=== PATIENT | male | born 1970 | race Two or more races ===

== ENCOUNTER 2025-04-04 04:17 | Emergency (ER) | payer MEDICARE, MEDICAID, SELFPAY ==
[2025-04-04 04:18] VITALS: BMI 47.8
[2025-04-04 04:21] VITALS: BP 127/77; PULSE 125; RESP 18; TEMP 36.4; O2SAT 94
--- NOTE | 2025-04-04 04:21 | EKG_ITS ---
[facility] Test Date: 2025-04-04 Pat Name: DOMITILA DAN Department: Room: - Gender: Male [employer] Operator: : [id number] Requested By: Saran Cunningham Order Number: [id number] Reading MD: Saran Cunningham Measurements Intervals Ramer Rate: 126 P: 71 [place]: 222 QRS: 197 QRSD: 166 T: -2 QT: 406 QTc: 588 Interpretive Statements SINUS TACHYCARDIA WITH FIRST DEGREE AV BLOCK INDETERMINATE AXIS RIGHT BUNDLE BRANCH BLOCK [120+ ms QRS DURATION, UPRIGHT V1, 40+ ms S IN I/aVL/V4/V5/V6] ST DEPRESSION, CONSIDER SUBENDOCARDIAL INJURY [0.1+ mV ST DEPRESSION] Compared to ECG 12/10/2017 16:02:51 Indeterminate axis now present ST (T wave) deviation now present Sinus rhythm no longer present Right-axis deviation no longer present /store/S0/[id number].pdf
--- NOTE | 2025-04-04 04:34 | XR_ITS ---
Examination: PA chest single view TECHNIQUE: Upright PA chest single view Date and time: April 04, 2025 0457 hours INDICATIONS: Chest pain and shortness of breath beginning today. FINDINGS: Mild elevation left hemidiaphragm Minor subsegmental atelectasis left base Minor prominence left ventricle. Mild vascular congestion. No lobar pneumonia IMPRESSION: Subsegmental atelectasis left base
--- NOTE | 2025-04-04 04:35 | EDRME_ITS ---
Rapid Medical Screening Exam [facility] Arrival date/time: 04/04/25 04:17 54F with history of afib (amio and metop), HTN, DM, muscular dystrophy, psych, and unknown type of cardiomyopathy presents to ED with 2 days of elevated HR, dizziness, and some chest tightness. Patient denies URI symptoms. Chief Complaint: Dizziness Vital signs: Vital Signs Temperature 97.5 F 04/04/25 04:21 Pulse Rate 125 H 04/04/25 04:21 Respiratory Rate 18 04/04/25 04:21 Blood Pressure 127/77 04/04/25 04:21 Pulse Oximetry (%) 94 L 04/04/25 04:21 Oxygen Delivery Method Room Air 04/04/25 04:21
[2025-04-04 05:09] VITALS: BP 121/81; PULSE 127; RESP 25; O2SAT 99
[2025-04-04 05:23] LABS: Basophils # (Auto) 0.0 Thou/mm3 (0.0-0.2); Basophils % (Auto) 0 % (0-2.5); Eosinophils # (Auto) 0.3 Thou/mm3 (0.0-0.5); Eosinophils % (Auto) 3 % (0-10); Hematocrit 42.8 % (41.0-53.0); Hemoglobin 14.1 g/dL (13.5-16.0); Immature Granulocytes Auto 0.03 Thou/mm3 (0.00-0.00); Lymphocytes # (Auto) 2.4 Thou/mm3 (1.0-4.8); Lymphocytes % (Auto) 20 % (10-50); Mean Corpuscular HGB Conc 32.9 g/dl (31.0-37.0); Mean Corpuscular Hemoglobin 29.3 pg (25.0-35.0); Mean Corpuscular Volume 89 fL (80-100); Monocytes # (Auto) 0.8 Thou/mm3 (0.0-0.8); Monocytes % (Auto) 7 % (0-12); Neutrophils # (Auto) 8.5 Thou/mm3 (1.8-7.7); Neutrophils % (Auto) 70 % (37-80); Nucleated Red Blood Cell # 0.00 Thou/mm3 (0.00-0.00); Nucleated Red Blood Cell % 0 /100 WBC (0); Platelet Count 289 Thou/mm3 (140-440); RDW Standard Deviation 43.2 fL (35.1-43.9); Red Blood Count 4.81 Miln/mm3 (4.50-5.90); White Blood Count 12.1 Thou/mm3 (3.8-10.6)
[2025-04-04 05:38] LABS: INR 1.2 (0.9-1.3); Partial Thromboplastin Time 28.3 Seconds (22.0-36.0); Prothrombin Time 12.7 Seconds (9.0-12.2)
[2025-04-04 05:46] LABS: B-Type Natriuretic Peptide 340 pg/mL (0-100)
[2025-04-04 05:49] LABS: Alanine Aminotransferase 15 U/L (10-49); Albumin, Serum 4.1 gm/dL (3.5-5.0); Albumin/Globulin Ratio 1.4 (1.2-2.2); Alkaline Phosphatase 159 U/L (46-116); Anion Gap 10 (7-16); Aspartate Amino Transferase 20 U/L (0-34); BUN/Creatinine Ratio 11 Ratio (12-20); Bilirubin,Total 0.7 mg/dL (0.3-1.2); Blood Urea Nitrogen 16 mg/dL (9-23); Calcium 8.7 mg/dL (8.3-10.6); Calcium (Corrected) 8.7 mg/dL (8.5-10.1); Carbon Dioxide 30.9 mMol/L (20.0-31.0); Chloride 101 mMol/L (98-107); Creatinine (Component) 1.4 mg/dL (0.6-1.3); Estimated Creatinine Clearance 89.5 mL/min (>60); Globulin 3.0 gm/dL (2.3-3.5); Glucose 155 mg/dL (74-106); Magnesium 1.3 mg/dL (1.6-2.6); Osmolality,Calculated 287 (275-295); Potassium 3.4 mMol/L (3.4-5.1); Sodium 142 mMol/L (136-145); Total Protein 7.1 gm/dL (5.7-8.2); Troponin I 0.034 ng/mL (0.0-0.045); eGFR 59 See Note
[2025-04-04 06:32] VITALS: BP 118/80; PULSE 125
[2025-04-04] MEDS: METOPROLOL TARTRATE INJ 1 MG/ML AMP 5 ML 5 MG IVP (06:32)
[2025-04-04] MEDS: SODIUM CHLORIDE 0.9% 500 ML 500 ML 999 ML IV (06:34)
--- NOTE | 2025-04-04 06:47 | EDNOTE_ITS ---
ED Arrhythmia Palp. RME/HPI General Chief Complaint: Dizziness Stated Complaint: HIGH HEART RATE Time Seen by Provider: 04/04/25 07:51 Arrival date/time: 04/04/25 04:17 Limitations: no limitations RME / HPI RME / HPI narrative: 04/04/25 04:17 54F with history of afib (amio and metop), HTN, DM, muscular dystrophy, psych, and unknown type of cardiomyopathy presents to ED with 2 days of elevated HR, dizziness, and some chest tightness. Patient denies URI symptoms. DR. TURNER MAIN ED EVALUATION: 49-year-old male with past medical history of cardiomyopathy, asthma, hypertension, diabetes mellitus, and muscular dystrophy presents to the Emergency Department with complaint of palpitations that began at 3 PM. He also reports associated shortness of breath but denies chest pain. Oxygen saturation is currently 93%, which is consistent with his baseline of 92?94%. He follows with customer experience leader Dr. Padgett in [place]. Related Data Home Medications ?Medication ?Instructions ?Recorded ?Confirmed lisinopril 20 mg tablet 20 mg PO QDAY #0 tabs 01/09/19 metformin 500 mg tablet 500 mg PO BIDAC #0 tabs 09/0401/09/19 (Glucophage) albuterol sulfate 90 mcg/actuation 2 puff inhalation Q 6H 12/10/17 01/09/19 aerosol inhaler aripiprazole 20 mg tablet (Abilify) 20 mg PO QDAY 0405/2101/09/19 fluoxetine 20 mg capsule (Prozac) 20 mg PO QDAY 01/09/19 Allergies Allergy/AdvReac Type Severity Reaction Status Date / Time No Known Allergies Allergy Verified 01/09/19 12:41 Review of Systems Review of Systems Systems Reviewed: All systems reviewed, normal except as documented Past Medical History Past Medical History CARDIAC: Positive Cardiac Disorders and Hypertension RESPIRATORY: Positive Asthma and Sleep Apnea (wears C-PAP) GASTROINTESTINAL: Positive Gastrointestinal Disorders and Obesity MUSCULOSKELETAL: Positive Musculoskeletal Disorders and Arthritis ENDOCRINE: Positive Diabetes Mellitus Type 2 PSYCHO/SOCIAL: Positive Bipolar Disorder and Depression OTHER HISTORY: Positive Chicken Pox Surgical History SURGICAL: Positive Abdominal Surgery Social History SMOKING STATUS: Never smoker SUBSTANCE USE: does not use ALCOHOL: Never ED Exam General Limitations: Present no limitations General appearance: Present alert, in no apparent distress and obese Head Head exam: Present atraumatic, normocephalic and normal inspection Eye Eye exam: Present normal appearance, PERRL and EOMI ENT ENT exam: Present normal exam, normal oropharynx and mucous membranes moist Neck Neck exam: Present full ROM, trachea midline and other (carotid 1+) Chest Chest inspection: Present normal inspection and symmetric chest wall rise Respiratory Respiratory exam: Present normal lung sounds bilaterally Cardiovascular Cardiovascular exam: Present normal rhythm, tachycardia, normal heart sounds and other (distance heart sounds) Abdominal Exam Abdominal exam: Present soft and normal bowel sounds Extremities Exam Extremities exam: Present normal inspection and full ROM Back Exam Back exam: Present normal inspection and full ROM Neurological Exam Neurological exam: Present alert, oriented X3 and CN II-XII intact Psychiatric Psychiatric exam: Present normal affect and normal mood Skin Skin exam: Present warm, dry, intact and normal color Course Quality Measures none Orders Category Date Time Status EKG (ED ONLY) *Do not use* NOW Care 04/04/25 04:21 Completed EKG (ED Only) Stat Exams 04/04/25 04:21 Draft XR chest 1V portable Stat Exams 04/04/25 04:34 Taken B-Type Natriuretic Peptide Stat Lab 04/04/25 04:55 Completed CBC Stat Lab 04/04/25 04:55 Completed Comprehensive Metabolic Panel Stat Lab 04/04/25 04:55 Completed Magnesium Stat Lab 04/04/25 04:55 Completed Partial Thromboplastin Time Stat Lab 04/04/25 04:55 Completed Prothrombin Time with INR Stat Lab 04/04/25 04:55 Completed Troponin I Stat Lab 04/04/25 04:55 Completed Aspirin Med 04/04/25 04:34 Discontinued 325 mg PO X1 ONE Metoprolol Tartrate Inj [Lopressor Inj] Med 04/04/25 06:27 Discontinued 5 mg IVP X1 ONE Sodium Chloride 0.9% 500 ml [Ns] 500 ml Med 04/04/25 06:27 Active IV 999 mls/hr Vital Signs Vital signs: Vital Signs Temperature 97.5 F 04/04/25 04:21 Pulse Rate 125 H 04/04/25 04:21 Respiratory Rate 18 04/04/25 04:21 Blood Pressure 127/77 04/04/25 04:21 Pulse Oximetry (%) 94 L 04/04/25 04:21 Oxygen Delivery Method Room Air 04/04/25 04:21 Arrhythmia/Palpitations MDM Narrative MDM Narrative:: I, Renata Mckeon, am scribing for and in the presence of Dr. Turner. Patient data External records reviewed:: [facility] previous records Clinical information provided by:: patient Social determinants that could affect healthcare access:: none Patient has the following chronic illnesses:: Cardiomyopathy, asthma, hypertension, diabetes mellitus, and muscular dystrophy. He follows with customer experience leader Dr. Padgett in [place]. How is presenting disease/condition affected by chronic disease/condition?: exacerbated by Evaluation data The following diagnostics were reviewed and interpreted by me:: lab results, radiology exam(s) and EKG tracing(s) Lab and/or radiology exams considered but not ordered:: none Interpretation Summary: My interpretation: EKG performed at 0427 hours, sinus tachycardia with first degree AV block, rate 126, right bundle branch block Labs are okay, no acute findings. Procedure(s): XR chest 1V portable Accession Number(s): [id number] cc: Willem Girard MD; GHANSHYAM BARILLAS; Saran Cunningham PA-C~ Examination: PA chest single view TECHNIQUE: Upright PA chest single view Date and time: April 04, 2025 0457 hours INDICATIONS: Chest pain and shortness of breath beginning today. FINDINGS: Mild elevation left hemidiaphragm Minor subsegmental atelectasis left base Minor prominence left ventricle. Mild vascular congestion. No lobar pneumonia IMPRESSION: Subsegmental atelectasis left base Dictated By: Willem Girard MD Medications / Prescriptions Medications or Prescriptions considered but not ordered:: none Medication administrations:: Medication Administration History Sodium Chloride (Ns) 500 mls @ 999 mls/hr IV .Q31M ONE Stop: 04/04/25 06:57 Last Admin: 04/04/25 06:34 Dose: 999 mls/hr Documented By: JT Discontinued Medications Aspirin (Aspirin 325 Mg Tablet) 325 mg PO X1 ONE Stop: 04/04/25 04:35 Last Admin: 04/04/25 05:02 Dose: 325 mg Documented By: JESSIE Metoprolol Tartrate (Metoprolol Tartrate Inj 1 Mg/Ml Amp 5 Ml) 5 mg IVP X1 ONE Stop: 04/04/25 06:28 Last Admin: 04/04/25 06:32 Dose: 5 mg Documented By: JT Consultations Consultation(s) initiated? (list below): No Diagnosis Differential diagnosis arrhythmia/palpitations: other (arrhythmia related to cardiomyopathy, heart failure exacerbation, anxiety or autonomic dysfunction related to muscular dystrophy) Most likely diagnosis given after review of the tests above:: Dehydration Tachycardia Cardiomyopathy Admission Indicated Admission indicated?: not indicated Admission Request Was there a request for admission?: No Disposition Plan Disposition Plan: Discharge Discharge Attestation Discharge Attestation: The patient and all family members were given an opportunity to ask questions and understood the discharge instructions. Discharge instructions specifically effects, indications for sooner follow up or return to the emergency department, and the expected course of current diagnosis. Patient condition: Stable Discharge Plan Plan Patient Disposition: HOME (Self Care) Patient condition on transfer: Stable Prescriptions/Referrals Prescriptions/Med Rec: No Action lisinopril 20 MG tablet 20 mg PO QDAY Qty: 0 metformin [Glucophage] 500 MG tablet 500 mg PO BIDAC Qty: 0 albuterol sulfate 90 mcg/actuation Hfa Aerosol Inhaler 2 puff INHALATION Q6H fluoxetine [Prozac] 20 mg Capsule 20 mg PO QDAY aripiprazole [Abilify] 20 mg Tablet 20 mg PO QDAY Referrals: Ow-Ghanshyam Martin MD [Primary Care Provider] - In 1 week Problem List Clinical Impression: Dehydration, Tachycardia, Cardiomyopathy Patient/Caregiver Discharge Instructions Diet Instructions: Please drink a lot of fluids. Additional Instructions: Please follow-up with your primary care physician within 2-3 days. Return to the Emergency Department as needed. Please drink a lot of fluids. Print Language: Armenian Stand Alone Forms: Manju Award Info., Patient Portal Info Letter
[2025-04-04 07:17] VITALS: BP 127/79; PULSE 88; RESP 18; O2SAT 93
[2025-04-04 08:11] VITALS: BP 112/73; PULSE 86; RESP 18; TEMP 36.5; O2SAT 95
[2025-04-04 09:00] VITALS: BP 116/77; PULSE 98; RESP 19; TEMP 36.8; O2SAT 93
== END 2025-04-04 09:00 | disposition home or self-care (01) ==
PROVIDERS: Physician Assistant; Emergency Provider Family Medicine; PCP Internal Medicine
DX: E86.0 Dehydration (principal); I42.9 Cardiomyopathy, unspecified; R00.0 Tachycardia, unspecified; J98.11 Atelectasis; I44.0 Atrioventricular block, first degree; I45.10 Unspecified right bundle-branch block; I10 Essential (primary) hypertension
CPT/HCPCS: 36415; 71045; 80053; 83735; 83880; 84484; 85025; 85610; 85730; 93005; 96361; 96374; 99283; J3490; J7999; A9270